=== PATIENT | female | born 1985 | race Caucasian/White ===

== ENCOUNTER 2017-06-19 14:55 | Emergency (ER) | payer SELFPAY ==
[2017-06-19 16:02] VITALS: O2SAT 98
--- NOTE | 2017-06-19 16:19 | EDPHY ---
General Narrative: CHIEF COMPLAINT: Multiple complaints after flu shot HISTORY OF PRESENT ILLNESS: Patient complains of feeling lightheaded, dizzy, nearly passing out, feeling heavy all over. This happened 20 minutes after receiving a flu vaccine injection left arm. 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 She says she has only had 1 previous flu shot and did not have this reaction. She had no chest pain but she did have fullness throughout her entire body. She has no tingling or numbness. No weakness of the lower extremities. Some mild head discomfort and pressure. The symptoms are starting to improve without any intervention. No history of diabetes or insulin use. No history of vagal reactions in the past. Last menstrual period was 2 weeks ago and she is status post tubal ligation. REVIEW OF SYSTEMS: Ten systems reviewed and are negative unless otherwise noted in the HPI PAST MEDICAL HISTORY: None. Takes vitamin-D supplements PAST SURGICAL HISTORY: Tubal ligation SOCIAL HISTORY: Nonsmoker. Works at [employer] in the [employer] FAMILY HISTORY: Noncontributory EXAMINATION General Appearance: Alert, no distress Head: normocephalic, atraumatic Eyes: Pupils equal and round, no conjunctival pallor or injection ENT, Mouth: Mucous membranes moist. Airway widely patent. No swelling of the lips, eyelids, tongue. Neck: Normal inspection, supple, non-tender Respiratory: Lungs are clear to auscultation Cardiovascular: Regular rate and rhythm. No murmur. Pulses intact distally Gastrointestinal: Abdomen is soft and nontender Back: non-tender, no bony abnormalities Neurological: GCS 15. A&O, nonfocal, normal gait. Strength symmetric in all 4 limbs. No pronator drift. No dysmetria. Skin: Warm and dry, no rash. No petechiae a flushing Extremities: Nontender, no pedal edema Psychiatric: Mood and affect normal DIFFERENTIAL DIAGNOSES: Including but not limited to vagal reaction, adverse drug reaction, vagal response, near-syncope, hypoglycemia, cardiac conduction delay MDM: 4:20 p.m. Near syncope after flu vaccine injection today. She is starting to feel better but still has some lightheadedness and generalized malaise. She has no abnormal findings on examination. No chance of both from sexual activity and ligation. Vital signs are within normal limits. No history of diabetes or insulin use. I have ordered fingerstick blood glucose as well as EKG. I do feel this is a vagal type reaction and she is in no acute distress. 5:00 p.m. Notified by RN that the patient was complaining of rash. I have re-evaluated the patient. Still no swelling of the face or lips. There is a mild rash on the arms it appears as though she has scratched them. There is no urticarial rash. There is no systemic rash. Blood sugar is 95. EKG is unremarkable. Urine test is pending. I do feel still feel that this is a adverse reaction to the flu shot. I feel that she is stable for discharge home and in no acute distress at this time. - History Smoking Status: Never smoked - Objective Vital Signs: Initial Vital Signs Temperature (C) 98.4 F 06/19/17 15:06 Heart Rate 60 06/19/17 15:06 Respiratory Rate 20 06/19/17 15:06 Blood Pressure 109/63 06/19/17 15:06 O2 Sat (%) 100 06/19/17 15:06 O2 Delivery Mode Room Air Allergies/Adverse Reactions: No Known Allergies Allergy (Unverified 06/19/17 15:06) Home Medications: Medication Instructions Recorded NK [No Known Home Meds] 06/19/17 Medications Given: Discontinued Medications Diphenhydramine HCl (Benadryl) 50 mg PO EDNOW ONE Stop: 06/19/17 16:55 Last Admin: 06/19/17 17:02 Dose: 50 mg Departure - Departure Disposition: Home, Routine, Self-Care Clinical Impression: Near syncope, Vasovagal near syncope Condition: Good Instructions: Syncope (ED), Near Syncope (ED) Additional Instructions: 1. Follow up with primary care physician 2. Return to ED for return of symptoms or any chest pain Referrals: Cheryl Price MD [Medical Doctor] - As per Instructions Stand Alone Forms: Work Excuse, Work Comp Follow Up
--- NOTE | 2017-06-19 16:40 | CPEKG ---
Heart Rate: 56 RR Interval: 1071 P-R Interval: 168 QRSD Interval: 78 QT Interval: 412 QTC Interval: 398 P Dema: 46 QRS Dema: 70 T Wave Dema: 45 EKG Severity - NORMAL ECG - EKG Impression: SINUS RHYTHM Electronically Signed By: Hamlet See 19-Jun-2017 17:34:51
[2017-06-19] MEDS ORDERED: diphenhydrAMINE 25 MG CAP PO ONE (16:54)
[2017-06-19 17:53] VITALS: BP 120/70; PULSE 58; RESP 16; TEMP 98.2
== END 2017-06-19 17:25 | disposition home or self-care (01) ==
DX: R55 Syncope and collapse (principal)

== ENCOUNTER → 2018-12-31 | Outpatient (CLI) | payer OTHER ==
[~2018-12-31] MED LIST: GADOBUTROL 10 ML VIAL IVP ONE
== END ==
LOC: FIMAGING 12:35
PROVIDERS: ATTEND Physician Assistant
DX: H90.42 Sensorineural hearing loss, unilateral, left ear, with unrestricted hearing on the contralateral side (principal)
CPT/HCPCS: A9585